=== PATIENT | male | born 1945 | race Caucasian/White ===

== ENCOUNTER 2016-04-28 13:18 | Emergency (ER) | payer OTHER ==
[2016-04-28 13:36] VITALS: RESP 18; TEMP 97.4
--- NOTE | 2016-04-28 14:13 | PDOC ---
Hand / Wrist Injury HPI - General Chief Complaint: Upper Extremity Problem/Injury Stated Complaint: FALL LAST NIGHT, RIGHT WRIST PAIN Date Seen by Provider: 04/28/16 Time Seen by Provider: 13:20 Source: POSITIVE: Patient Exam Limitations: POSITIVE: No limitations Nurse's Notes Reviewed & Considered: Yes - History of Present Illness Initial Comments: The patient is a 70-year-old male who presents to the emergency department with right wrist pain. He states that he tripped and fell yesterday hitting his right wrist and hand on the concrete. He states that initially last night he did not seem to have a lot of pain. When he woke up this morning however his right wrist was very stiff and painful. He also has noticed some bruising. He does have a distant history of fracture in this wrist with subsequent ORIF and hardware removal. He denies taking any blood thinner medications currently. Have you received a tetanus shot in the past 10 years?: Yes - Patient Home Medications Home Medications: Home Medications Aspirin [Rosalina Aspirin] 325 mg PO DAILY 09/03/10 Fluoxetine HCl [Prozac] 20 mg PO DAILY 09/03/10 Hydrochlorothiazide 25 mg PO DAILY 09/03/10 Nifedipine [Nifediac Cc] 30 mg PO BID 09/03/10 Simvastatin [Zocor] 40 mg PO DAILY 09/03/10 Metformin HCl 850 mg PO TID 12/29/11 - Patient Allergies Allergies/Adverse Reactions: Allergies Allergy/AdvReac Type Severity Reaction Status Date / Time No Known Allergies Allergy Verified 04/28/16 13:28 Past Medical History - heen HEENT History: Denies History Cardiovascular History: Hypertension Respiratory History: Denies History Gastrointestinal History: Denies History Genitourinary History: Denies History 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 or Implant: Yes Additional Musculoskeletal History: R WRIST/L FEMUR INJURIES FROM [facility] 1970 Neurological History: Denies History Blood Disorders: Denies History Psychiatric History: Depression Male Reproductive History: Denies History Cancer History: Denies History In Past Year Been Physically Harmed or Verbally Threatened: No History of MDRO: No Tobacco Use: Former Smoker Alcohol Use: Rarely Type of alcohol normally used: Hard Liquor How much alcohol do you normally drink a day?: MIXED DRINK WEEKLY Substance Use Type: None Previous Surgical History: Yes Type / Date of Surgery: R WRIST, L FEMUR, ANGIOPLASTY Anesthesia Reactions: No Malignant Hyperthermia: No Family History of Malignant Hyperthermia: No Significant Family History: No pertinent family hx Past Medical History Reviewed: Reviewed - No Changes ROS - Limitations ROS Limitations: No Limitations (Review of systems otherwise noncontributory, he denies hitting his head or any other associated injury.) Hand / Wrist Injury Exam - General Appearance General Appearance: POSITIVE: Alert, Cooperative, No Acute Distress - Extremities Upper Extremity: POSITIVE: Other (examination of the right wrist reveals some bruising and swelling to the volar aspect of the wrist over the distal ulna, he also has some generalized swelling to the wrist itself, no obvious deformity, scarring from previous surgeries) Neurovascular / Tendon: POSITIVE: Sensation Normal, Motor Normal, No Vascular Compromise Hand / Wrist Injury Progress - Results Reviewed by me Xrays/CTs/US Reviewed by me: Yes Discussed with Radiologist: Yes Radiology Findings: X-ray of the right wrist is negative for fracture, arthritic changes and changes associated with previous fracture noted per radiologist. - Patient's Progress MDM / ED Course: X-ray findings were discussed with the patient. He does have degenerative changes related to previous fracture with no acute fracture identified. He has a Velcro wrist splint which she states alleviates most of his discomfort and he was advised to continue using this. He will ice and elevate the right wrist. He can take ibuprofen as needed for pain. Return to the emergency room if increased pain or numbness, any worsening or change in symptoms. He is advised follow-up with orthopedic surgery if continued pain in one week. - Consult Counseled: POSITIVE: Patient, RE: Radiology Results, RE: DX, RE: Need for F/U Patient Care Time - Estimated PCT Patient Care Time (In Minutes): 15 Vital Signs - Recent Vital Signs Vital Signs: Vital Signs (Last 8 hours) Temp Pulse Resp BP Pulse Ox 04/28/16 13:18 97.4 F 75 18 154/100 90 - VS Reviewed Vital Signs Reviewed: Yes Discharge Clinical Impression: Wrist sprain Condition: Stable Patient Instructions Given at Discharge: Wrist Injury (ED) Additional Instructions: Keep the right wrist in the Velcro wrist splint for comfort. Ice and elevate the right wrist. Ibuprofen 600 mg every 6 hours as needed for pain. Return to the emergency room if increased pain or numbness, worsening or change in symptoms. Recommend follow-up with orthopedic surgery if continued pain in one week. Follow Up With: NONE,NONE [Primary Care Provider] -
--- NOTE | 2016-04-28 15:18 | DI ---
RIGHT WRIST, 04/28/2016 1:28 PM: Clinical History: Injury. The patient fell. The patient had previous surgery to the right wrist. Previous Exam: None at this facility. 3 views are submitted. There is no acute soft tissue, osseous, or joint abnormality. There are old fr actures involving the distal radius and ulna. The distal radial articular surface is in neutral posit ion and there has been remodeling secondary to the previous fracture of this area. Readin. There is no acute fracture. 2. There are old fractures of the distal radius and ulna with previous intra-articular involvement.
== END 2016-04-28 14:33 | disposition home or self-care (01) ==
LOC: ER 13:18
DX: S63.501A Unspecified sprain of right wrist, initial encounter (principal); S60.211A Contusion of right wrist, initial encounter; W01.0XXA Fall on same level from slipping, tripping and stumbling without subsequent striking against object, initial encounter
CPT/HCPCS: 73110; 99282